=== PATIENT | male | born 1940 ===

== ENCOUNTER 2022-12-02 19:23 | Emergency (ER) | payer SELFPAY ==
[2022-12-02 20:16] VITALS: BP 149/71; PULSE 82; RESP 16; TEMP 36.4; O2SAT 96
[2022-12-02 20:48] LABS: Appearance Urine Turbid (Clear); Bilirubin Urine Negative (Negative); Blood Urine 3+ (Negative); Color Urine Red (Yellow); Glucose Urine UA Trace mg/dL (Negative); Ketones Urine Negative (Negative); Leukocyte Esterase Ur Negative LEU/UL (Negative); Nitrate Urine Negative (Negative); Protein Urine 3+ mg/dL (Negative); Urobilinogen Urine 0.2 mg/dL (<2.0)
[2022-12-02 20:56] LABS: Add Urine Microscopic? YES
[2022-12-02 20:57] LABS: Bacteria Urine Trace /hpf; RBC Urine >100 /hpf (0-2); Squamous Epithelial Cell Urine None seen /hpf (Few); WBC Urine 0-3 /hpf (0-3)
== END 2022-12-03 01:33 | disposition left against medical advice (07) ==
LOC: ANHED 22:22
PROVIDERS: Emergency Provider Emergency Medicine
DX: R31.9 Hematuria, unspecified (principal)
CPT/HCPCS: 81001; 99199